=== PATIENT | male | born 1960 | race Caucasian/White ===

== ENCOUNTER 2022-11-06 10:43 | Day surgery (SDC) | payer BC ==
[2022-11-05 09:56] VITALS: BMI 29.7
[2022-11-06] MEDS ORDERED: Proparacaine 0.5% Opth 15 ML BOT ONE (11:08)
== END 2022-11-06 13:05 | disposition home or self-care (01) ==
LOC: SDC 10:43
PROVIDERS: ATTEND Surgery
PROC: 08C Eye, Extirpation (ICD-10-PCS; principal; 2022-11-06)
DX: H40.031 Anatomical narrow angle, right eye (principal)

== ENCOUNTER 2023-09-10 08:36 | Outpatient (CLI) | payer MEDICARE, OTHER | END 2023-09-10 08:37 | disposition home or self-care (01) | LOC: BICULT 08:36 | PROVIDERS: ATTEND Physician Assistant | DX: R10.11 Right upper quadrant pain (principal); K76.0 Fatty (change of) liver, not elsewhere classified; R16.0 Hepatomegaly, not elsewhere classified; Z90.49 Acquired absence of other specified parts of digestive tract | CPT/HCPCS: 76700 ==